=== PATIENT | male | born 1935 | race African-American/Black ===

== ENCOUNTER 2020-04-21 14:56 | Outpatient (CLI) | payer MEDICARE, OTHER, SELFPAY ==
--- NOTE | ~2020-04-21 | US_ITS ---
EXAMINATION: US venous doppler LE RT DATE: 04/21/2020 15:36 INDICATION: Lower limb edema TECHNIQUE: Patricia scale images without and with compression and Doppler images of the right lower extre mity veins were obtained. COMPARISON: None FINDINGS: The right common femoral vein, profunda femoral vein, femoral vein, popliteal vein, peronea l trunk, posterior tibial veins, and greater saphenous vein are patent. IMPRESSION: 1. Patent right lower extremity veins. No evidence of deep venous thrombosis. Reviewed, dictated and finalized at location A.
== END 2020-04-21 14:57 | disposition home or self-care (01) ==
PROVIDERS: PCP Family Medicine; Visit Provider Family Medicine
DX: R60.0 Localized edema (principal)
CPT/HCPCS: 93971

== ENCOUNTER 2021-06-21 16:31 | Emergency (ER) | payer MEDICARE, OTHER, SELFPAY ==
[2021-06-21 16:35] VITALS: BP 127/56; PULSE 92; RESP 22; TEMP 36.9; O2SAT 96
[2021-06-21 16:56] VITALS: BP 114/69; PULSE 88; RESP 16; O2SAT 98
[2021-06-21 17:44] LABS: Alanine Aminotransferase 15 U/L (4-50); Albumin Level 3.7 g/dL (3.5-5.1); Alkaline Phosphatase 55 U/L (38-126); Anion Gap 10 mmol/L (8-16); Aspartate Amino Transferase 24 U/L (17-59); Bilirubin,Total 1.2 mg/dL (0.2-1.3); Blood Urea Nitrogen 34 mg/dL (9-20); Carbon Dioxide 22 mmol/L (22-30); Chloride 98 mmol/L (98-107); Estimated CRCL calculation 22 ml/min; Estimated Glomerular Filt Rate 36; Glucose 255 mg/dL (65-110); Potassium 3.1 mmol/L (3.4-5.0); Sodium 130 mmol/L (137-145)
[2021-06-21] MEDS: SODIUM CHLORIDE 0.9% IV 1,000 ML 150 ML IV CONT (18:42)
[2021-06-21 19:19] LABS: Basophils Percent Auto 0.1 % (0.2-1.2); Eosinophils Percent Auto 0.1 % (0-4.4); Hematocrit 40.4 % (42.0-52.0); Hemoglobin 12.3 g/dL (14.0-18.0); Immature Granulocyte Absolute 0.05 K/mm3 (0.00-0.031); Immature Granulocyte Percent A 0.7 % (0-0.5); Lymphocytes Percent Auto 11.6 % (18.3-44.2); Mean Corpuscular HGB Conc 30.4 g/dl (32-36); Mean Corpuscular Hemoglobin 31.2 pg (26-34); Mean Corpuscular Volume 102.5 fl (80-100); Mean Platelet Volume 11.4 fl (7.4-10.4); Monocytes Absolute Auto 0.6 K/mm3 (0.1-0.6); Monocytes Percent Auto 8.2 % (2.6-8.5); Neutrophils Absolute Auto 5.4 K/mm3 (1.3-6.7); Neutrophils Percent Auto 79.3 % (45.5-73.1); Platelet Count Result 78 k/mm3 (150-375); Red Blood Count 3.94 M/mm3 (4.6-6.20); Red Cell Distribution Width 14.5 % (11.5-14.5); White Blood Count 6.9 K/mm3 (4.5-10.0)
[2021-06-21 19:24] VITALS: BP 106/60; PULSE 79; PULSE 84; RESP 22; O2SAT 96
[2021-06-21 19:28] LABS: Lactic Acid Reflex 1.4 mmol/L (0.7-2.1)
[2021-06-21 19:33] LABS: Burr Cells 2+ (NORMAL); Ovalocytes 1+ (NORMAL); Platelet Estimate Decreased (Adequate)
[2021-06-21 19:57] LABS: Add Urine Microscopic? YES; Appearance Urine Cloudy (Clear); Bilirubin Urine Negative (Negative); Blood Urine Negative (Negative); Color Urine Yellow (Yellow); Glucose Urine UA Negative (Negative); Ketones Urine Negative (Negative); Leukocyte Esterase Ur Negative LEU/UL (Negative); Mucus Urine Rare /lpf; Nitrate Urine Negative (Negative); Protein Urine Negative (Negative); RBC Urine 0-2 /hpf (0-2); Specific Grav Ur 1.013 (1.001-1.035); Squamous Epithelial Cell Urine Rare /hpf (Few); Urobilinogen Urine Negative mg/dL (<2.0); WBC Urine 0-3 /hpf
[2021-06-21 20:54] VITALS: PULSE 71; RESP 23; O2SAT 97
--- NOTE | 2021-06-21 21:44 | ED.GENADULT ---
HPI - General Adult General Chief complaint: Weakness Stated complaint: I think I'm dehydrated, I'm swollen Time Seen by Provider: 06/21/21 16:58 Source: patient Mode of arrival: ambulatory Limitations: no limitations History of Present Illness HPI narrative: 85-year-old with a history of hypertension, kidney cancer s/p bilateral nephrectomy, s/p renal transplant 6 years ago done at [facility] here with complaints of weakness in his lower extremities. Patient states that he was admitted to [facility] a week ago got discharged home and now having problem with walking. He denies any fever or chills. No history of nausea or vomiting. Patient states that his both lower extremities are been swollen and he is having difficulty in walking. Patient is presently wearing compression stockings he denies any chest pain or shortness of breath and Onset (ago): week(s) (1) Exacerbating factors: none Associated symptoms: denies other symptoms Treatments prior to arrival: none Related Data Home Medications Medication Instructions Recorded Confirmed bumetanide 06/21/21 calcitriol 06/21/21 carvedilol 06/21/21 ergocalciferol (vitamin D2) 06/21/21 furosemide 06/21/21 multivitamin with folic acid tablet PO 06/21/21 [Daily-Leonela (with folic acid)] potassium chloride meq PO 06/21/21 pravastatin 06/21/21 sitagliptin [Januvia] mg 06/21/21 tamsulosin mg PO 06/21/21 Allergies Allergy/AdvReac Type Severity Reaction Status Date / Time aspirin Allergy Intermediate HIVES Verified 06/21/21 17:04 Review of Systems Review of Systems: All systems reviewed & are unremarkable except as noted in HPI and below Constitutional: Constitutional: Reports as per HPI Eyes: Eyes: Reports no additional eye complaints ENT: Reports system reviewed and no additional complaints, except as documented Cardiovascular: Cardiovascular: Reports no additional cardiovascular complaints Respiratory: Respiratory: Reports no additional respiratory complaints Gastrointestinal: Gastrointestinal: Reports no additional gastrointestinal complaints Musculoskeletal: Musculoskeletal: Reports no additional musculoskeletal complaints Neurologic: Reports system reviewed and no additional complaints, except as documented Endocrine: Endocrine: Reports no additional endocrine complaints Exam Narrative: GENERAL: Well-appearing, well-nourished, and in no acute distress. HEAD: Normocephalic, atraumatic. EYES: PERRLA and EOMI. NECK: Supple. CHEST: Clear to auscultation. No respiratory distress. HEART: Regular rate and rhythm. No murmur heard. Normal peripheral pulses. ABDOMEN: Soft, nontender, nondistended, normal active bowel sounds. EXTREMITIES: Normal range of motion. Has chronic edema of both lower extremities SKIN: Warm, dry, no rash. NEURO: No focal deficits. Alert and oriented x3. PSYCH: Normal mood and affect. Course Course Emergency Course: Patient feeling much better after IV fluids. Informed him about his lab work. He states his baseline creatinine is 1.7-1.8. Advised him to drink more fluids. 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 She does feel comfortable going home. Vital Signs Vital signs: Vital Signs Temperature 36.9 C 06/21/21 16:35 Pulse Rate 92 06/21/21 16:35 Respiratory Rate 22 H 06/21/21 16:35 Blood Pressure 127/56 L 06/21/21 16:35 Pulse Oximetry 96 06/21/21 16:35 Temperature 36.9 C 06/21/21 16:35 Pulse Rate 71 06/21/21 20:54 Respiratory Rate 23 H 06/21/21 20:54 Blood Pressure 106/60 06/21/21 19:24 Pulse Oximetry 97 06/21/21 20:54 Medical Decision Making Vital Signs Vital Signs: Vital Signs Temperature 36.9 C 06/21/21 16:35 Pulse Rate 92 06/21/21 16:35 Respiratory Rate 22 H 06/21/21 16:35 Blood Pressure 127/56 L 06/21/21 16:35 Pulse Oximetry 96 06/21/21 16:35 Temperature 36.9 C 06/21/21 16:35 Pulse Rate 71 06/21/21 20:54 Respiratory Rate 23 H 12
[2021-06-21 22:39] VITALS: BP 142/82; PULSE 67; RESP 15; O2SAT 98
[2021-06-21 23:19] VITALS: BP 142/82; PULSE 74; RESP 22; O2SAT 99
--- NOTE | 2021-06-27 15:49 | PC.NURSE ---
LATE ENTRY This note is being entered to document information to the patient's record. The following information was omitted on [06/21/21], by [Joan Fraire]. NS stop time is 2300
== END 2021-06-21 23:22 | disposition home or self-care (01) ==
PROVIDERS: Emergency Provider Family Medicine; PCP Family Medicine
DX: R53.1 Weakness (principal); I10 Essential (primary) hypertension; Z85.528 Personal history of other malignant neoplasm of kidney; Z90.5 Acquired absence of kidney; Z94.0 Kidney transplant status; Z79.84 Long term (current) use of oral hypoglycemic drugs
CPT/HCPCS: 36415; 80053; 81001; 83605; 85025; 96360; 96361; 99283; J7030